=== PATIENT | female | born 1990 | race Caucasian/White ===

== ENCOUNTER 2022-08-05 09:34 | Emergency (ER) | payer MEDICAID ==
[~2022-08-05] VITALS: Ht 157.5 cm; Wt 65.8 kg
--- NOTE | 2022-08-05 09:34 | NUR ---
Per verbal report from mass communications instructor, this patient was sent to ER to rule out infection of g-tube site and have the gtube remove if patient passes the swallow evaluation. Patient is awake, non-verbal, eyes tracking, chronic R sided severe weakness and only said "ahhhh!" when moved from [facility] to our own hospital [facility], not directable, her respiration:easy, non-labored and even.
[2022-08-05 10:03] LABS: HEMATOCRIT 41.6 % (31.2-41.9); MEAN CORPUSCULAR HEMOGLOBIN 28.8 uug (24.7-32.8); MEAN CORPUSCULAR VOLUME 84.9 fL (75.5-95.3); PLATELET COUNT (AUTO) 317 K/uL (179-408)
--- NOTE | 2022-08-05 10:13 | NUR ---
Called to speak w/ Pt's nurse to [facility], both times went to message and disconect. Unable to speak or get report from staff. Pt's [employer].
[2022-08-05] MEDS ORDERED: THIA100T74 GT (10:21)
[2022-08-05] MEDS ORDERED: TRAM50TA2 GT (10:21)
[2022-08-05] MEDS ORDERED: BACL10TA GT (10:21)
[2022-08-05] MEDS ORDERED: LEVE500T9 GT (10:21)
[2022-08-05] MEDS ORDERED: DULO60CA45 GT (10:21)
[2022-08-05] MEDS ORDERED: OXCA150T5 GT (10:21)
[2022-08-05] MEDS ORDERED: LANS30CA56 GT (10:21)
[2022-08-05] MEDS ORDERED: OXYC15TA2 GT (10:21)
[2022-08-05 10:28] LABS: BILIRUBIN,TOTAL 0.2 mg/dL (0.2-1.0); CREATININE 0.6 mg/dL (0.6-1.3); POTASSIUM 4.2 mmol/L (3.5-5.1); TOTAL PROTEIN, SERUM 7.7 g/dL (6.4-8.2)
--- NOTE | 2022-08-05 12:07 | NUR ---
Patient discharged to senior care in stable condition. Written and verbal after care instructions given to EMT Jorge of [facility]. Our ER staff tried calling the senior care repeatedly, but no answer. Patient's EMT verbalized understanding of instructions. Stressed follow up with primary doctor or return to ER for worsening s/s.
== END 2022-08-05 12:11 ==
LOC: ER 09:34
DX: Z43.1 Encounter for attention to gastrostomy (principal); I69.351 Hemiplegia and hemiparesis following cerebral infarction affecting right dominant side; I69.320 Aphasia following cerebral infarction; K21.9 Gastro-esophageal reflux disease without esophagitis; G40.909 Epilepsy, unspecified, not intractable, without status epilepticus; Z79.899 Other long term (current) drug therapy
CPT/HCPCS: 36415; 85025; A4663